=== PATIENT | male | born 1950 | race Caucasian/White ===

== ENCOUNTER → 2022-03-11 | Emergency (ER) | payer OTHER ==
[~2022-03-11] VITALS: Ht 180.3 cm; Wt 93.0 kg
--- NOTE | 2022-03-11 05:25 | NUR ---
PT BIBRA C/O BLOOD IN URINE THIS AM AROUND 0430. PT AAOX4 BREATHING EVENLY AND UNLABORED. PT DENIES ANY DYSURIA, SUPRPUBIC PAIN OR FLANK PAIN. PT STATES THAT HE HAS A STAGE 3 WOUND ON HIS RIGHT SIDE. PT ATTACHED TO MONITOR AND POX. WILL CONTINUE TO MONITOR.
--- NOTE | 2022-03-11 05:35 | NUR ---
URINE GIVEN TO PT; AWAITING URINE SAMPLE
--- NOTE | 2022-03-11 06:30 | NUR ---
PT UNABLE TO URINATE. OFFERED IN AND OUT WONG CATH, PT REFUSED
--- NOTE | 2022-03-11 07:23 | NUR ---
REPORT GIVEN TO PAYTON KRISHNAN FOR [facility]
[2022-03-11 08:17] LABS: COLOR,URINE RED (YELLOW)
[2022-03-11 09:36] LABS: RBC,URINE TOO NUMEROUS TO COUN /HPF (0-2)
[2022-03-11 09:37] LABS: BACTERIA,URINE Few /HPF (None Seen); SQUAMOUS EPITHELIAL CELL,UR Few /HPF (None Seen)
--- NOTE | 2022-03-11 10:22 | NUR ---
[facility] CALLED FOR TRANSPORT, ETA 5 MIN PER MARTIN
--- NOTE | 2022-03-11 11:05 | NUR ---
MILAN ÉPREZ, #[phone] ext. [phone]
[2022-03-11 11:18] LABS: BASOPHILS # (AUTO) 0.1 K/uL (0.0-0.2); BASOPHILS % (AUTO) 0.9 % (0.0-2.0); EOSINOPHILS % (AUTO) 2.6 % (0.0-6.0); HEMATOCRIT 27 % (39-51); HEMOGLOBIN 9.2 g/dL (13.5-17.5); LYMPHOCYTES # (AUTO) 0.9 K/uL (0.8-4.8); LYMPHOCYTES % (AUTO) 12.6 % (20.0-44.0); MEAN CORPUSCULAR HGB CONC 33 g/dl (31.0-36.0); MEAN CORPUSCULAR VOLUME 103 fL (80-96); MONOCYTES # (AUTO) 0.6 K/uL (0.1-1.30); NEUTROPHILS # (AUTO) 5.2 K/uL (1.8-8.9); NEUTROPHILS % (AUTO) 74.9 % (43.0-81.0); PLATELET COUNT (AUTO) 275 K/uL (150-450); RED BLOOD CELL COUNT(AUTO) 2.66 MIL/uL (4.5-6.0); WHITE BLOOD COUNT (AUTO) 6.9 K/uL (4.3-11.0)
--- NOTE | 2022-03-11 12:23 | NUR ---
PT TRANSPORTATION ETA 1400. [facility].
--- NOTE | 2022-03-11 12:49 | NUR ---
Mike harrington in [facility] - 03/11/22 at 1252 by [facility] NUMBER [phone]
--- NOTE | 2022-03-11 12:57 | NUR ---
[facility] Riley STUART [phone]
--- NOTE | 2022-03-11 13:56 | NUR ---
PADMINI MARTINEZ OF [facility], [facility] [phone].
--- NOTE | 2022-03-11 15:31 | NUR ---
PICKED UP BY AMBULANCE
[2022-03-11 15:32] VITALS: BP 116/63
--- NOTE | 2022-03-11 17:10 | NUR ---
CALLED [facility], TRANSPORTATION IS BEING SCHEDULED.
[2022-03-11 18:28] LABS: BAND % (MANUAL) 2 % (0.0-5.0); EOSINOPHILS % (MANUAL) 1 % (0-4); LYMPHOCYTES % (MANUAL) 9 % (16-48); MONOCYTES % (MANUAL) 17 % (0-11.0); NEUTROPHILS % (MANUAL) 71 (42-76)
== END ==
LOC: ER 05:12
DX: R31.9 Hematuria, unspecified (principal); D64.9 Anemia, unspecified; I10 Essential (primary) hypertension; F32.9 Major depressive disorder, single episode, unspecified; Z87.440 Personal history of urinary (tract) infections
CPT/HCPCS: 36415; 81001; 85025-TC